=== PATIENT | male | born 1965 | race Two or more races ===

== ENCOUNTER 2024-08-08 11:16 | Inpatient (IN) | payer OTHER ==
[~2024-08-08] VITALS: Ht 180.3 cm; Wt 108.9 kg
[2024-08-08] MEDS ORDERED: LAMICTAL100 MG PO (12:24)
[2024-08-08] MEDS ORDERED: RISPERIDONE1 MG PO (12:24)
[2024-08-08] MEDS ORDERED: CLONAZEPAM1 MG PO (12:24)
[2024-08-08] MEDS ORDERED: SULINDAC200 MG PO (12:24)
[2024-08-08] MEDS ORDERED: RESTORIL15 MG PO (12:24)
[2024-08-08] MEDS ORDERED: DESVENLAFAXINE100 M3 PO (12:24)
[2024-08-08] MEDS ORDERED: ST. JOSEPH ASPI81 M2 PO (12:25)
[2024-08-08] MEDS ORDERED: 0.9 % SODIUM CHLORIDE 1,000 ML IV STA (13:19)
[2024-08-08] MEDS ORDERED: HYDROCODONE/CHLORPHEN P-STIREX 5 ML ML PO STA (13:24)
[2024-08-08 13:50] LABS: HEMOGLOBIN 14.9 g/dL (13-16.00); MEAN CELL VOLUME 91.5 fL (80.0-100.00); MEAN CORPUSCULAR HEMOGLOBIN 31.7 pg (27.00-32.0); MEAN CORPUSCULAR HGB CONC 34.6 g/dl (32.0-36.0); RED BLOOD COUNT 4.69 M/uL (4.00-6.00); RED CELL DISTRIBUTION WIDTH 18.1 % (11.5-14.5)
[2024-08-08 13:51] LABS: PLATELET COUNT 124 K/uL (150-450)
[2024-08-08 14:15] LABS: ALBUMIN 2.4 gm/dL (3.4-5.0); BILIRUBIN TOTAL 6.76 mg/dL (0.3-1.2); BILIRUBIN,CONJUGATED 5.68 mg/dL (0.0-0.2); BILIRUBIN,UNCONJUGATED 1.08 mg/dL (0.0-0.6); CREATININE SERUM 0.99 mg/dL (0.70-1.30); GFR 76.85; INR 1.72; POTASSIUM 4.88 mEq/L (3.5-5.1); TOTAL PROTEIN 8.4 gm/dL (6.4-8.2)
[2024-08-08 14:23] LABS: CALCIUM 13.1 mg/dL (8.5-10.1)
[2024-08-08] MEDS ORDERED: DEXAMETHASONE SODIUM PHOSP/PF 10 MG/ML VIAL IV ONE (16:00)
[2024-08-08] MEDS ORDERED: DEXAMETHASONE SODIUM PHOSPHATE 4 MG/ML VIAL ONE (16:04)
[2024-08-08] MEDS ORDERED: LACTULOSE 20 G/30 ML BLIST.PACK PO STA (16:43)
[2024-08-08] MEDS ORDERED: PHYTONADIONE 10 MG/ML AMPUL SUBCUTANEO STA (16:46)
[2024-08-08] MEDS ORDERED: LACTULOSE 20 G/30 ML BLIST.PACK PO SCH (17:00)
[2024-08-08] MEDS ORDERED: CEFTRIAXONE SODIUM 2,000 MG in 0.9 % SODIUM CHLORIDE 100 ML IV SCH (17:13)
[2024-08-08] MEDS ORDERED: PANTOPRAZOLE SODIUM 40 MG/VIAL VIAL IV SCH (17:14)
[2024-08-08] MEDS ORDERED: ONDANSETRON HCL 4 MG in 0.9 % SODIUM CHLORIDE 50 ML IV PRN (17:15)
[2024-08-08] MEDS ORDERED: 0.9 % SODIUM CHLORIDE 1,000 ML IV SCH (17:15)
[2024-08-08] MEDS ORDERED: PHYTONADIONE 10 MG/ML AMPUL ONE (17:26)
[2024-08-08] MEDS ORDERED: CEFTRIAXONE SODIUM 2,000 MG VIAL ONE (17:26)
[2024-08-08] MEDS ORDERED: LACTULOSE 20 G/30 ML BLIST.PACK ONE ×2 (17:26→18:50)
[2024-08-08] MEDS ORDERED: LACTULOSE 10 G/15 ML ML RECTAL ONE (18:45)
[2024-08-08 18:49] LABS: URINE APPEARANCE Cloudy; URINE BILIRRUBIN Large (NEGATIVE); URINE BLOOD Negative; URINE COLOR Orange; URINE GLUCOSE Negative (NEGATIVE); URINE KETONE Negative (NEGATIVE); URINE LEUKOCYTE Small; URINE NITRATE Positive; URINE PROTEIN Trace (NEGATIVE)
[2024-08-08 18:53] LABS: URINE BACTERIA 287.6 uL (0.0-1933); URINE CAST 17.67 uL (0.0-1.40); URINE EPITHELIAL CELLS 34.1 uL (0.0-38.8); URINE RBC 16.9 uL (0.0-20.8); URINE WBC 29.4 uL (0.0-23.2)
[2024-08-08 19:16] LABS: URINE CRYSTALS MODERATE /HPF; URINE MUCUS HEAVY
[2024-08-08 20:43] VITALS: BP 134/70; O2SAT 99
[2024-08-08 22:00] VITALS: BP 116/64; O2SAT 98
[2024-08-08 23:00] VITALS: BP 108/69; O2SAT 96
[2024-08-08 23:06] LABS: ABG PH 7.399 (7.35-7.45); ABG pCO2 36.7 mmHg (35-45); BASE EXCESS -2.1 mmol/l; BICARBONATE 22.2 mmol/l (23-25); Tco2 23.3 mmol/l; allen test SATISFACTORY; o2 21 %; puncture site RADIAL LEFT
[2024-08-08 23:08] LABS: SaO2 94.1 %
[2024-08-09] VITALS (21 sets, daily range): BP systolic 96–132; BP diastolic 61–73; O2SAT 96–100
[2024-08-09 08:26] LABS: MAGNESIUM 2.4 mg/dL (1.8-2.4); PHOSPHOROUS 3.4 mg/dL (2.5-4.9); TSH 1.12 uIU/mL (0.358-3.74)
[2024-08-09] MEDS ORDERED: PHYTONADIONE 10 MG/ML AMPUL SUBCUTANEO SCH (09:00)
[2024-08-09] MEDS ORDERED: LACTULOSE 20 G/30 ML BLIST.PACK PO SCH (09:00)
[2024-08-09] MEDS ORDERED: CALCITONIN,SALMON,SYNTHETIC 400 UNIT/2ML VIAL SUBCUTANEO SCH (16:15)
[2024-08-09] MEDS ORDERED: ENOXAPARIN SODIUM 40 MG/0.4 ML SYRINGE SUBCUTANEO SCH (16:19)
[2024-08-09 21:20] LABS: CALCIUM 11.5 mg/dL (8.5-10.1); CREATININE SERUM 1.07 mg/dL (0.70-1.30); GFR 70.26; POTASSIUM 4.58 mEq/L (3.5-5.1)
[2024-08-10] VITALS (10 sets, daily range): BP systolic 95–117; BP diastolic 57–71; O2SAT 96–100
[2024-08-10 06:43] LABS: CALCIUM 11.4 mg/dL (8.5-10.1); CREATININE SERUM 0.95 mg/dL (0.70-1.30); GFR 80.6; POTASSIUM 4.63 mEq/L (3.5-5.1)
[2024-08-10 06:57] LABS: HEMATOCRIT 39.1 % (39.0-48.0); HEMOGLOBIN 13.4 g/dL (13-16.00); MEAN CELL VOLUME 92.6 fL (80.0-100.00); MEAN CORPUSCULAR HEMOGLOBIN 31.7 pg (27.00-32.0); MEAN CORPUSCULAR HGB CONC 34.3 g/dl (32.0-36.0); PLATELET COUNT 130 K/uL (150-450); RED BLOOD COUNT 4.22 M/uL (4.00-6.00); RED CELL DISTRIBUTION WIDTH 18.3 % (11.5-14.5)
[2024-08-10] MEDS ORDERED: PHYTONADIONE 10 MG/ML AMPUL ONE (09:06)
[2024-08-10] MEDS ORDERED: CEFTRIAXONE SODIUM 2,000 MG VIAL ONE (09:07)
[2024-08-10] MEDS ORDERED: ENOXAPARIN SODIUM 40 MG/0.4 ML SYRINGE SUBCUTANEO ONE (09:07)
[2024-08-10] MEDS ORDERED: LACTULOSE 20 G/30 ML BLIST.PACK ONE (09:38)
[2024-08-10 13:21] LABS: PH,URINE 5.5 (5.0-8.0); URINE APPEARANCE Cloudy; URINE BILIRRUBIN Moderate (NEGATIVE); URINE BLOOD Large; URINE COLOR Dark Yellow; URINE GLUCOSE Negative (NEGATIVE); URINE KETONE Negative (NEGATIVE); URINE LEUKOCYTE Small; URINE NITRATE Negative; URINE PROTEIN Trace (NEGATIVE)
[2024-08-10 13:25] LABS: URINE BACTERIA 107.6 uL (0.0-1933); URINE CAST 1.47 uL (0.0-1.40); URINE EPITHELIAL CELLS 5.6 uL (0.0-38.8); URINE RBC 5058.9 uL (0.0-20.8); URINE WBC 29.7 uL (0.0-23.2)
[2024-08-11] VITALS (9 sets, daily range): BP systolic 105–118; BP diastolic 64–75; O2SAT 82–99
[2024-08-11 05:44] LABS: CALCIUM 10.8 mg/dL (8.5-10.1); CREATININE SERUM 0.75 mg/dL (0.70-1.30); GFR 105.87; POTASSIUM 4.21 mEq/L (3.5-5.1)
[2024-08-11 06:17] LABS: HEMATOCRIT 39.6 % (39.0-48.0); HEMOGLOBIN 13.3 g/dL (13-16.00); MEAN CELL VOLUME 93.2 fL (80.0-100.00); MEAN CORPUSCULAR HEMOGLOBIN 31.3 pg (27.00-32.0); MEAN CORPUSCULAR HGB CONC 33.5 g/dl (32.0-36.0); RED BLOOD COUNT 4.25 M/uL (4.00-6.00); RED CELL DISTRIBUTION WIDTH 18.7 % (11.5-14.5)
[2024-08-11 06:19] LABS: PLATELET COUNT 108 K/uL (150-450)
[2024-08-11] MEDS ORDERED: LACTULOSE 20 G/30 ML BLIST.PACK PO STA (14:11)
[2024-08-12] VITALS (9 sets, daily range): BP systolic 110–140; BP diastolic 67–82; O2SAT 95–98
[2024-08-12 07:53] LABS: HEMATOCRIT 36.5 % (39.0-48.0); HEMOGLOBIN 12.3 g/dL (13-16.00); MEAN CELL VOLUME 93.1 fL (80.0-100.00); MEAN CORPUSCULAR HEMOGLOBIN 31.4 pg (27.00-32.0); MEAN CORPUSCULAR HGB CONC 33.7 g/dl (32.0-36.0); PLATELET COUNT 101 K/uL (150-450); RED BLOOD COUNT 3.92 M/uL (4.00-6.00); RED CELL DISTRIBUTION WIDTH 19.2 % (11.5-14.5)
[2024-08-12 11:16] LABS: INR 1.34; PARTIAL THROMBOPLASTIN TIME 36.2 SECONDS (22.0-34.0); PROTHROMBIN TIME 14.3 SECONDS (9.0-11.5)
[2024-08-12 12:10] LABS: CALCIUM 10.3 mg/dL (8.5-10.1); CREATININE SERUM 0.74 mg/dL (0.70-1.30); GFR 107.53; POTASSIUM 3.85 mEq/L (3.5-5.1)
[2024-08-12 12:13] LABS: ALBUMIN 2.1 gm/dL (3.4-5.0); BILIRUBIN TOTAL 5.75 mg/dL (0.3-1.2); BILIRUBIN,CONJUGATED 4.66 mg/dL (0.0-0.2); BILIRUBIN,UNCONJUGATED 1.09 mg/dL (0.0-0.6); TOTAL PROTEIN 6.3 gm/dL (6.4-8.2)
[2024-08-12] MEDS ORDERED: NEOMYCIN SULFATE 500 MG TABLET PO SCH (14:15)
[2024-08-12] MEDS ORDERED: LACTULOSE 10 G/15 ML ML PO SCH (15:30)
[2024-08-12] MEDS ORDERED: POLYETHYLENE GLYCOL 3350 17 GM BLIST.PACK PO SCH (17:00)
[2024-08-12] MEDS ORDERED: LORazepam 0.5 MG TABLET PO SCH (22:15)
[2024-08-13 00:18] VITALS: BP 111/68; O2SAT 98
[2024-08-13 09:05] VITALS: O2SAT 96
[2024-08-13 09:35] VITALS: BP 117/71; O2SAT 97
[2024-08-13 15:49] VITALS: BP 109/69; O2SAT 93
[2024-08-13 19:49] VITALS: O2SAT 94
[2024-08-14 00:43] VITALS: BP 107/66; O2SAT 95; O2SAT 96
[2024-08-14 06:35] LABS: HEMATOCRIT 36.6 % (39.0-48.0); HEMOGLOBIN 12.1 g/dL (13-16.00); MEAN CELL VOLUME 95.4 fL (80.0-100.00); MEAN CORPUSCULAR HEMOGLOBIN 31.6 pg (27.00-32.0); MEAN CORPUSCULAR HGB CONC 33.1 g/dl (32.0-36.0); RED BLOOD COUNT 3.83 M/uL (4.00-6.00); RED CELL DISTRIBUTION WIDTH 19.2 % (11.5-14.5)
[2024-08-14 06:42] LABS: PLATELET COUNT 119 K/uL (150-450)
[2024-08-15 10:09] VITALS: O2SAT 97
[2024-08-15] MEDS ORDERED: MORPHINE SULFATE 2 MG/ML CARTRIDGE IV SCH (13:00)
[2024-08-15 13:45] VITALS: O2SAT 98
[2024-08-15 15:19] LABS: CALCIUM 10.9 mg/dL (8.5-10.1); CREATININE SERUM 0.91 mg/dL (0.70-1.30); GFR 84.7; POTASSIUM 4.02 mEq/L (3.5-5.1)
[2024-08-15 16:56] VITALS: BP 95/59; O2SAT 94
[2024-08-15 17:21] VITALS: O2SAT 94
[2024-08-15] MEDS ORDERED: GUAIFENESIN 200 MG/10 ML BLIST.PACK PO SCH (19:00)
[2024-08-15 22:23] VITALS: O2SAT 97
[2024-08-15 23:56] VITALS: BP 102/60; O2SAT 95
[2024-08-16 05:48] LABS: HEMATOCRIT 28.4 % (39.0-48.0); MEAN CELL VOLUME 96.6 fL (80.0-100.00); PLATELET COUNT 142 K/uL (150-450); RED BLOOD COUNT 2.93 M/uL (4.00-6.00); RED CELL DISTRIBUTION WIDTH 19.7 % (11.5-14.5)
[2024-08-16 05:53] LABS: CALCIUM 10.3 mg/dL (8.5-10.1); CREATININE SERUM 0.82 mg/dL (0.70-1.30); GFR 95.51; POTASSIUM 4.17 mEq/L (3.5-5.1)
[2024-08-16 05:56] LABS: HEMOGLOBIN 9.4 g/dL (13-16.00)
[2024-08-16 08:00] VITALS: BP 139/68; O2SAT 95
[2024-08-16 18:30] VITALS: BP 123/66; O2SAT 96
[2024-08-17 01:54] VITALS: BP 119/63; O2SAT 92
[2024-08-17 07:57] VITALS: BP 129/70
== END 2024-08-17 13:19 | disposition home or self-care (01) | DRG 436 ==
LOC: ER 11:19 → MEDI 17:27 → ICU-2 17:27 → MEDJ 08-10 09:56 → MEDI 08-10 10:05
PROVIDERS: Emergency Medicine; General Practice; Internal Medicine Hematology & Oncology; Internal Medicine Infectious Disease; ADMIT Student in an Organized Health Care Education/Training Program; ATTEND Student in an Organized Health Care Education/Training Program
PROC: BW24YZZ Computerized Tomography (CT Scan) of Chest and Abdomen using Other Contrast (ICD-10-PCS; 2024-08-08)
PROC: BW21ZZZ Computerized Tomography (CT Scan) of Abdomen and Pelvis (ICD-10-PCS; 2024-08-08)
PROC: BW28ZZZ Computerized Tomography (CT Scan) of Head (ICD-10-PCS; 2024-08-08)
PROC: 4A12X4Z Monitoring of Cardiac Electrical Activity, External Approach (ICD-10-PCS; principal; 2024-08-10)
PROC: BW40ZZZ Ultrasonography of Abdomen (ICD-10-PCS; 2024-08-10)
PROC: BW28ZZZ Computerized Tomography (CT Scan) of Head (ICD-10-PCS; 2024-08-11)
DX: C78.7 Secondary malignant neoplasm of liver and intrahepatic bile duct (principal); C34.92 Malignant neoplasm of unspecified part of left bronchus or lung; D68.8 Other specified coagulation defects; N39.0 Urinary tract infection, site not specified; C77.1 Secondary and unspecified malignant neoplasm of intrathoracic lymph nodes; K76.82 Hepatic encephalopathy; K72.90 Hepatic failure, unspecified without coma; F32.9 Major depressive disorder, single episode, unspecified; K74.69 Other cirrhosis of liver; E78.5 Hyperlipidemia, unspecified; E83.52 Hypercalcemia; I10 Essential (primary) hypertension